=== PATIENT | male | born 1995 | race Caucasian/White ===

== ENCOUNTER 2022-11-22 10:07 | Outpatient (CLI) | payer OTHER, SELFPAY ==
--- NOTE | 2022-11-22 | DI.RAD_ITS ---
Exam(s) XR ANKLE LT COMPLETE EXAM: XR ANKLE LT COMPLETE CLINICAL HISTORY: LT ANKLE PAIN, M25.572 TECHNIQUE: 2D digital imaging was performed of the left ankle. Three images were obtained. AP, lat eral and oblique views were obtained. COMPARISON: No exams were available for comparison FINDINGS: BONES: No acute fracture is present. No bony destructive lesion is seen. There is a well corticated o sseous density lateral to the cuboid which appears chronic. JOINTS:The ankle mortise is normally aligned. SOFT TISSUE: Normal. IMPRESSION: No acute abnormality. DATA REPOSITORY: RADIATION DOSE DELIVERED:
== END 2022-11-22 10:27 ==
PROVIDERS: Visit Provider Nurse Practitioner Family
DX: M25.572 Pain in left ankle and joints of left foot (principal)
CPT/HCPCS: 73610

== ENCOUNTER 2022-12-14 17:18 | Emergency (ER) | payer OTHER, SELFPAY ==
--- NOTE | 2022-12-14 17:15 | DI.RAD_ITS ---
Exam(s) XR SHOULDER RT COMPLETE 2+V EXAM: XR SHOULDER RT COMPLETE 2+V CLINICAL HISTORY: Pain. TECHNIQUE: 2D digital imaging was performed. COMPARISON: No exams were available for comparison FINDINGS: Five views: No evidence of fracture or dislocation nor abnormal soft tissue calcifications. Subacromial space un remarkable. Glenohumeral and AC joints unremarkable. Clavicle unremarkable. Visualized scapula unr emarkable. Coracoid process appears intact. IMPRESSION: No significant radiographic findings in the right shoulder. DATA REPOSITORY: RADIATION DOSE DELIVERED:
[2022-12-14 17:22] VITALS: BP 136/91; PULSE 77; RESP 18; TEMP 36.8; O2SAT 100
--- NOTE | 2022-12-14 18:01 | ED.GENADUL_ITS ---
Discharge Plan Disposition Patient Disposition: Home Condition: Stable Discharge Details Clinical Impression: Other sprain of right shoulder joint, initial encounter Primary Care Provider: KAT SANDERSON ED Provider: Manju Randolph Home Meds and New Rx's Prescriptions: No Action clonazepam [Klonopin] 0.5 mg Tablet 0.5 mg PO PRN PRN fluoxetine 10 mg Tablet 30 mg PO DAILY Discharge Instructions Instructions: Shoulder Sprain (ED) Additional Instructions: Rest ice compression elevation. Please take Tylenol or Ibuprofen with food ev tricia 4-6 hours as needed for pain and swelling. Please follow-up with orthopedics if no improvement in range of motion over the next 3 to 4 weeks. Referrals: Bismark Lopez MD [ [facility] STAFF PHYSICIAN] - Return if symptoms worsen Discharge Data Discharge Date/Time-TO BE ENTERED AT DEPARTURE: 12/14/22 18:47 Medical Decision Making 27-year-old male presents to the ER chief complaint of right shoulder pain decreased range of motion after lifting somewhat over his head on Tuesday. He reports that he felt a pop and has had increased pain since then with certain movements. He is unable to lift his arm above 90 degrees and pain when using the gearshift for a standard vehicle. No other associated symptoms or complaints. X-ray within normal limits. I did discuss home care with patient who verbalized understanding. He has bought himself a sling. I did instruct him on RICE procedures Tylenol ibuprofen for the next 2 to 3 weeks and to follow-up with Ortho if needed. This text was generated using [employer] dictation system, please disregard any oddities of phrase or misspellings. Imaging Data Radiologic Study: Imaging: X-Ray Radiologist's impression: TECHNIQUE: Imaging protocol: Radiologic exam of the right shoulder. Views: 2 or more views. COMPARISON: No relevant prior studies available. FINDINGS: Bones/joints: No acute fracture. No dislocation Soft tissues: Normal. IMPRESSION: No acute findings. Thank you for allowing us to participate in the care of your patient. Dictated and Authenticated by: Antonino Childs MD [facility] General Mode of arrival: ambulatory . Date/Time Provider Initiated Documentation: 12/14/22 17:25 . Limitations to Documentation: no limitations . Information obtained by: patient, RN notes reviewed and old records reviewed . HPI Narrative: 27-year-old male presents to the ER chief complaint of right shoulder pain decreased range of motion after lifting somewhat over his head on Tuesday. He reports that he felt a pop and has had increased pain since then with certain movements. He is unable to lift his arm above 90 degrees and pain when using the gearshift for a standard vehicle. No other associated symptoms or complaints. No obvious deformity. Distal CMS is intact. Related Data Home Medications Medication Instructions Recorded Confirmed clonazepam 0.5 mg tablet (Klonopin) 0.5 mg PO PRN PRN 12/14/22 12/14/22 fluoxetine 10 mg tablet 30 mg PO DAILY 12/14/22 12/14/22 Allergies Allergy/AdvReac Type Severity Reaction Status Date / Time No Known Allergies Allergy Unverified 12/14/22 17:24 General Stated Complaint: Orthopedic EVANGELINA: 4 Review of Systems Musculoskeletal Musculoskeletal: Reports as per HPI and Reports arthralgias PFSH All Active Problems (Updated 12/14/22 @ 18:37 by Manju Randolph NP) Other sprain of right shoulder joint, initial encounter (Acute) Social History Smoking/Tobacco Use Status: Current every day Tobacco Type: e-cigarettes Smoking risk assessment performed?: Yes Alcohol Intake: current Alcohol Intake frequency: holidays/special occasions only Alcohol type: beer Drug use: Never Substance use type: does not use Do you feel safe at home: Yes Do you feel safe in your relationship?: Yes Exam Extrem General: capillary refill normal Right upper extremity: normal to inspection, normal capillary refill and shoulder/upper arm Details: tenderness Location: other (Anterior shoulder) Shoulder/upper arm images: 1. Tenderness with palpation Course Vital Signs Vital signs: Vital Signs Temperature 36.8 C 12/14/22 17:22 Pulse 77 12/14/22 17:22 Respiratory Rate 18 12/14/22 17:22 Blood Pressure 136/91 H 12/14/22 17:22 Pulse Oximetry 100 12/14/22 17:22 Temperature 36.8 C 12/14/22 17:22 Pulse 77 12/14/22 17:22 Respiratory Rate 18 12/14/22 17:22 Respiratory Effort Normal, Non-Labored 12/14/22 17:25 Blood Pressure 136/91 H 12/14/22 17:22 Blood Pressure Position Sitting 12/14/22 17:22 Pulse Oximetry 100 12/14/22 17:22 Oxygen Delivery Method Room Air 12/14/22 17:22 Oxygen Flow Rate 0 12/14/22 17:22
--- NOTE | 2022-12-14 18:02 | DI.VRAD_ITS ---
PROCEDURE INFORMATION: Exam: XR Right Shoulder Exam date and time: 12/14/2022 5:41 PM Age: 27 years old Clinical indication: Other: Pain TECHNIQUE: Imaging protocol: Radiologic exam of the right shoulder. Views: 2 or more views. COMPARISON: No relevant prior studies available. FINDINGS: Bones/joints: No acute fracture. No dislocation Soft tissues: Normal. IMPRESSION: No acute findings. Dictated and Authenticated by: Antonino Childs MD. Ordering:ROBINA Nunes MD
== END 2022-12-14 18:47 | disposition home or self-care (01) ==
PROVIDERS: Emergency Provider Registered Nurse Emergency; PCP Nurse Practitioner Family
DX: S43.401A Unspecified sprain of right shoulder joint, initial encounter (principal); X50.0XXA Overexertion from strenuous movement or load, initial encounter
CPT/HCPCS: 99283; 73030

== ENCOUNTER 2023-11-17 15:05 | Outpatient (REF) | payer OTHER, SELFPAY ==
[2023-11-17 19:18] LABS: Anion Gap 7.8 mmol/L (3-11); BUN 14 mg/dL (7-18); CO2 29.2 mmol/L (21.0-32.0); Calcium 9.1 mg/dL (8.5-10.1); Chloride 106 mmol/L (98-107); Estimated GFR 103.84 (mL/min/1.73m2); Glucose 87 mg/dL (74-106); Potassium 4.7 mmol/L (3.5-5.1); Sodium 143 mmol/L (136-145)
[2023-11-17 20:42] LABS: Calculated LDL 101 mg/dL (<100); Cholesterol 166 mg/dL (<200); HDL Cholesterol 52 mg/dL (40-60); Triglyceride 69 mg/dL (<150)
== END 2023-11-17 15:06 | disposition home or self-care (01) ==
LOC: NCHCN 15:05
PROVIDERS: PCP Nurse Practitioner Family; Visit Provider Nurse Practitioner Family
DX: Z00.00 Encounter for general adult medical examination without abnormal findings (principal); Z13.220 Encounter for screening for lipoid disorders; Z13.228 Encounter for screening for other metabolic disorders
CPT/HCPCS: 80048; 80061